=== PATIENT | male | born 1960 | race Caucasian/White ===

== ENCOUNTER 2020-05-21 09:31 | Outpatient (CLI) | payer BC, SELFPAY ==
--- NOTE | 2020-05-21 09:53 | XR_ITS ---
WS: [id number] PROCEDURE: XR chest 2V* [id number] CLINICAL INFORMATION: shortness of breath COMPARISON: FINDINGS: Heart: Normal cardiac silhouette. Lungs: Lungs are clear. No consolidation or pleural fluid. Moderate chronic emphysematous changes. Bones: Normal visualized bony structures. XR/XR chest 2V* [id number] IMPRESSION: Moderate chronic emphysematous changes. No acute pulmonary infiltrates.
== END 2020-05-21 09:32 | disposition home or self-care (01) ==
LOC: RADWPI 09:35
PROVIDERS: Family Provider Family Medicine; PCP Family Medicine; Visit Provider Family Medicine Adult Medicine
DX: R06.02 Shortness of breath (principal)
CPT/HCPCS: 71046; 80053; 80061; 83036; 83880; 84443; 84484; 85025; G0103

== ENCOUNTER → 2020-12-24 09:15 | Outpatient (BNVA) | payer OTHER, SELFPAY | PROVIDERS: Family Provider Family Medicine; PCP Family Medicine; Visit Provider Psychiatry & Neurology Psychiatry | DX: F39 Unspecified mood [affective] disorder (principal) | CPT/HCPCS: 90792 ==

== ENCOUNTER → 2021-01-08 12:23 | Outpatient (BNVA) | payer OTHER, SELFPAY | PROVIDERS: Family Provider Family Medicine; PCP Family Medicine Adult Medicine; Visit Provider Psychiatry & Neurology Psychiatry | DX: F39 Unspecified mood [affective] disorder (principal) | CPT/HCPCS: 99214 ==

== ENCOUNTER → 2021-01-11 10:33 | Outpatient (BNVA) | payer OTHER, SELFPAY | PROVIDERS: Family Provider Family Medicine; PCP Family Medicine Adult Medicine; Visit Provider Social Worker | DX: F39 Unspecified mood [affective] disorder (principal) | CPT/HCPCS: 90834 ==

== ENCOUNTER → 2021-02-02 13:04 | Outpatient (BNVA) | payer OTHER, SELFPAY | PROVIDERS: Family Provider Family Medicine; PCP Family Medicine Adult Medicine; Visit Provider Psychiatry & Neurology Psychiatry | DX: F39 Unspecified mood [affective] disorder (principal) | CPT/HCPCS: 99214 ==

== ENCOUNTER → 2021-05-25 10:31 | Outpatient (BNVA) | payer OTHER, SELFPAY | PROVIDERS: Family Provider Family Medicine; PCP Family Medicine Adult Medicine; Visit Provider Family Medicine Adult Medicine | DX: M54.16 Radiculopathy, lumbar region (principal); N18.30 Chronic kidney disease, stage 3 unspecified; E78.5 Hyperlipidemia, unspecified; E03.9 Hypothyroidism, unspecified; R94.6 Abnormal results of thyroid function studies; E66.9 Obesity, unspecified | CPT/HCPCS: 80053; 80061; 84443; 85651 ==

== ENCOUNTER 2021-05-26 13:23 | Outpatient (CLI) | payer OTHER, SELFPAY ==
--- NOTE | 2021-05-26 13:00 | XR_ITS ---
WS: [id number] LUMBAR SPINE: 3 VIEWS TECHNIQUE: AP, lateral and L5-S1 spot. HISTORY: LBP intermittent COMPARISON: None available. Long curvature lumbar spine and mild straightening. 4 mm anterolisthesis of L5. Disc spaces are mildl y narrowed with endplate osteophytes throughout the lumbar spine. Moderate facet joint arthritis L4-5 and L5-S1. Pedicles are all identified. No fracture. SI joints are symmetric bilaterally. No soft tissue abnormalities. XR/XR lumbar spine 2-3V* [id number] IMPRESSION: Moderate spondylitic changes. No fracture. Facet joint arthritis most significant L4-5 and L5-S1.
== END 2021-05-26 13:24 | disposition home or self-care (01) ==
PROVIDERS: PCP Family Medicine Adult Medicine; Visit Provider Family Medicine Adult Medicine
DX: M54.5 Low back pain (principal); M47.816 Spondylosis without myelopathy or radiculopathy, lumbar region; M47.817 Spondylosis without myelopathy or radiculopathy, lumbosacral region
CPT/HCPCS: 72100

== ENCOUNTER 2021-07-13 14:47 | Outpatient (CLI) | payer OTHER, SELFPAY ==
--- NOTE | 2021-07-13 15:15 | MR_ITS ---
WS: [id number] MRI LUMBAR SPINE NONCONTRAST HISTORY: M54.50 - Low back pain, unspecified COMPARISON: None available. TECHNIQUE: Sagittal and axial multisequence imaging is submitted. 3 mm retrolisthesis of L4. Moderate disc space narrowing and desiccation at L4-5 and L5-S1. Small elise unt of marrow edema along the endplates of L4 and L5. No fractures. Disc spaces and vertebral body heights are well-preserved. Conus terminates normally at L1. L1-L2: Mild disc bulging. No stenosis. L2-L3: Mild annular disc bulge with a central annular fissure. Very slight ligamentum flavum arthriti s. There is mild encroachment into the lateral recesses with only mild narrowing and stenosis. L3-L4: Diffuse annular disc bulge with central annular fissures. Mild osteophytic ridging mild ligame ntum flavum and facet arthritis. Narrowing of the lateral recesses with encroachment upon the moira ing L4 nerve roots bilaterally. Mild bilateral foraminal narrowing. L4-L5: Diffuse osteophytic ridging and annular disc bulging. There is a shallow central disc protrusi on with mild ligamentum flavum hypertrophy and facet arthritis. Mild bilateral subarticular recess st enosis. The central disc protrusion is slightly contacting the traversing L5 nerve roots. L5-S1: Mild annular disc bulging and osteophytic ridging. Mild ligamentum flavum hypertrophy and face t arthritis. Mild LEFT subarticular foraminal stenosis. Visualized retroperitoneum is normal. MR/MR lumbar spine wo con* [id number] IMPRESSION: 1. Moderate degenerative disc disease at L4-5 and L5-S1. 2. Moderate disc osteophyte encroachment upon the traversing L4 nerve roots in the lateral recesses with mild bilateral foraminal stenosis also. 3. Central disc protrusion at L4-5 slightly contacting the traversing L5 nerve roots with mild bilateral subarticular recess stenosis. 4. Mild LEFT subarticular and foraminal stenosis at L5-S1.
== END 2021-07-13 14:48 | disposition home or self-care (01) ==
LOC: RADSHAW 14:49
PROVIDERS: PCP Family Medicine Adult Medicine; Visit Provider Orthopaedic Surgery
DX: M51.16 Intervertebral disc disorders with radiculopathy, lumbar region (principal); M51.37 Other intervertebral disc degeneration, lumbosacral region; M25.78 Osteophyte, vertebrae; M51.26 Other intervertebral disc displacement, lumbar region; M48.07 Spinal stenosis, lumbosacral region
CPT/HCPCS: 72148

== ENCOUNTER → 2021-08-02 11:12 | Outpatient (BNVA) | payer OTHER, SELFPAY | PROVIDERS: PCP Family Medicine Adult Medicine; Visit Provider Surgery | DX: Z20.822 Contact with and (suspected) exposure to COVID-19 (principal); Z11.52 Encounter for screening for COVID-19 | CPT/HCPCS: 87635 ==

== ENCOUNTER 2021-08-05 09:48 | Day surgery (SDC) | payer OTHER, SELFPAY ==
--- NOTE | 2021-08-05 10:32 | ANES.PREANE2 ---
Pre-Anesthetic Assessment Pre-Anesthetic Assessment: Height/Weight: Height 1.83 m Preop Diagnosis: diagnostic Proposed Procedure: Operation Date: 08/05/21 11:30 Proposed Procedures p Colonoscopy 52393 K52.9(Not Applicable) - Greg Perry MD Was Beta Edin taken within 24 hours: N/A Was Clonidine taken within 24 hours: N/A Social: Social History: No alcohol and No tobacco Exam: Pre-Anes Outpt Exam: alert, oriented x 3 and regular rate & rhythm Airway: Submandibular: WNL Cervical ROM: WNL MP: 2 Dentition: Chipped Pulmonary: Pulmonary: COPD and ARROYO CV/HEM: CV/HEM: Angina (Stable) : : Chronic renal Insufficiency Metabolic: Metabolic: Hyperlipidemia, Morbid obesity and Thyroid Musc/skel: Musc/skel: Lower Back Pain Anesthetic Plan: ASA status: 3 Anesthesia: MAC Risk of > 500 ml blood loss (7ml/kg in children): No PFSH Anesthesia PFSH: Medical History 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 Cellulitis Chronic osteoarthritis CKD (chronic kidney disease) stage 3, GFR 30-59 ml/min COPD (chronic obstructive pulmonary disease) with emphysema Hyperlipemia Hypothyroidism determined by thyroid function test Impacted ear wax Lacrimal duct stenosis Mood disorder Psoriasis annularis Radiculopathy, lumbar region Surgical History H/O facial fracture repair Status post colonoscopy Social History Smoking and tobacco status: never smoked Second hand smoke exposure: Yes Alcohol intake: never Adopted: No Caregiver/support person: No Lives independently: Yes Household members: spouse Current occupational status: employed Current gender identity: Male Special randall needs: No Data Anesthesia Cardiac Studies: No Data to Display
[2021-08-05 11:30] VITALS: BP 153/98; PULSE 61; RESP 18; TEMP 36.3; O2SAT 96
[2021-08-05 11:34] VITALS: BMI 31.8
--- NOTE | 2021-08-05 11:51 | W.PM.OPSFHP ---
Same Day Surgery H&P Indication for Procedure/HPI DATE OF PROCEDURE: August 05, 2021 CHIEF COMPLAINT/INDICATIONFOR SURGICAL PROCEDURE: diarrhea/colonoscopy PREOP DIAGNOSIS: diagnostic PLANNED PROCEDRUE: Operation Date: 08/05/21 11:30 Proposed Procedures p Colonoscopy 42256 K52.9(Not Applicable) - Greg Perry MD Medications/Allergies* Home Medications Medication Instructions Recorded Confirmed Type levothyroxine 112 mcg PO DAILY 08/05/21 08/05/21 History Allergies/Adverse Reactions Allergy/AdvReac Type Severity Reaction Status Date / Time No Known Allergies Allergy Verified 07/27/21 15:15 Pertinent History/Comorbid Conditions* Medical History (Updated 07/27/21 @ 15:53 by Duc Taylor DO) 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 Cellulitis Chronic osteoarthritis CKD (chronic kidney disease) stage 3, GFR 30-59 ml/min COPD (chronic obstructive pulmonary disease) with emphysema Hyperlipemia Hypothyroidism determined by thyroid function test Impacted ear wax Lacrimal duct stenosis Mood disorder Psoriasis annularis Radiculopathy, lumbar region Surgical History (Updated 07/02/21 @ 13:05 by Greg Perry MD) H/O facial fracture repair Status post colonoscopy Social History Smoking and tobacco status: never smoked Second hand smoke exposure: Yes Alcohol intake: never Adopted: No Caregiver/support person: No Lives independently: Yes Household members: spouse Current occupational status: employed Current gender identity: Male Special randall needs: No Pertinent Exam Findings alert, oriented x 3 and regular rate & rhythm Recommendations Surgery/Procedure today Coding Level of Care Code Acute 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
[2021-08-05] MEDS: sodium chloride 0.9% 1,000 ML 30 ML IV (11:54)
[2021-08-05 12:27] VITALS: BP 111/71; PULSE 71; RESP 16; TEMP 36.7; O2SAT 98
--- NOTE | 2021-08-05 13:35 | ANE.PACU2 ---
Inpatient post-anesthesia follow up: Airway intact: Yes Vital signs: Temperature 98.1 F Pulse Rate 71 Respiratory Rate 16 Blood Pressure 111/71 Pulse Oximetry 98 Oxygen Delivery Me thod Room Air Oxygen Flow Rate Fraction of Inspir ed Oxygen Hydration adequate: Yes Nausea and vomiting: No Pain level: 1 Mental status: Baseline
== END 2021-08-05 12:59 | disposition home or self-care (01) ==
PROVIDERS: PCP Family Medicine Adult Medicine; Visit Provider Surgery
PROC: 0DJD8ZZ Inspection of Lower Intestinal Tract, Via Natural or Artificial Opening Endoscopic (ICD-10-PCS; CPT 45378; principal; 2021-08-05 11:30)
DX: Z12.11 Encounter for screening for malignant neoplasm of colon (principal); D12.4 Benign neoplasm of descending colon; K57.30 Diverticulosis of large intestine without perforation or abscess without bleeding; K64.8 Other hemorrhoids; R19.7 Diarrhea, unspecified; E03.9 Hypothyroidism, unspecified; N18.30 Chronic kidney disease, stage 3 unspecified; M54.50 Low back pain, unspecified; Z77.22 Contact with and (suspected) exposure to environmental tobacco smoke (acute) (chronic)
CPT/HCPCS: 45380; 82274; 83630; 87493; 87506; 88305; J2704; J7030

== ENCOUNTER → 2021-08-16 08:57 | Outpatient (BNVA) | payer OTHER, SELFPAY | PROVIDERS: PCP Family Medicine Adult Medicine; Referring Provider Orthopaedic Surgery; Visit Provider Anesthesiology Pain Medicine | DX: M48.062 Spinal stenosis, lumbar region with neurogenic claudication (principal); M54.16 Radiculopathy, lumbar region; M47.816 Spondylosis without myelopathy or radiculopathy, lumbar region; Z79.899 Other long term (current) drug therapy; R10.30 Lower abdominal pain, unspecified | CPT/HCPCS: 99204 ==

== ENCOUNTER → 2022-05-31 09:18 | Outpatient (BNVA) | payer SELFPAY | PROVIDERS: PCP Family Medicine Adult Medicine; Visit Provider Dermatology | DX: Z01.89 Encounter for other specified special examinations (principal); E78.5 Hyperlipidemia, unspecified; E03.9 Hypothyroidism, unspecified; R94.6 Abnormal results of thyroid function studies; N18.30 Chronic kidney disease, stage 3 unspecified ==

== ENCOUNTER → 2022-11-22 08:07 | Outpatient (BNVA) | payer OTHER, SELFPAY | PROVIDERS: PCP Family Medicine Adult Medicine; Visit Provider Family Medicine Adult Medicine | DX: E78.5 Hyperlipidemia, unspecified (principal); E03.9 Hypothyroidism, unspecified; R94.6 Abnormal results of thyroid function studies; K52.9 Noninfective gastroenteritis and colitis, unspecified; J43.9 Emphysema, unspecified; R63.5 Abnormal weight gain; N18.30 Chronic kidney disease, stage 3 unspecified; L40.8 Other psoriasis; H04.559 Acquired stenosis of unspecified nasolacrimal duct; E78.2 Mixed hyperlipidemia; I20.0 Unstable angina; Z98.890 Other specified postprocedural states; Z87.81 Personal history of (healed) traumatic fracture; E66.9 Obesity, unspecified | CPT/HCPCS: 80053; 80061; 83036; 84443; 85025 ==

== ENCOUNTER 2023-01-26 06:06 | Outpatient (CLI) | payer OTHER, SELFPAY ==
--- NOTE | 2023-01-26 06:30 | USCV_ITS ---
Xavi Eckert Age: 62 Gender: M : 1960 Exam Date: 01/26/2023 06:22 Ordering Phys: Duglas Alexis MD ([email or web address]) Technologist: MARISEL [place]am [place] [facility] [place] Indication: SHORTNESS OF BREATH, CHEST PAIN BP: 140 / 90 HR: 48 Rhythm: Sinus Technical Quality: Adequate MEASUREMENTS (Male / Female) Normal Values 2D ECHO LVOT Diameter 2.0 cm LV Ejection Fraction MOD 2C 77.1 % LV Ejection Fraction 2C AL 77.8 % LA Diameter 2.7 cm LA Width 3.1 cm LA Height 4.7 cm RA Width 3.1 cm RA Height 3.6 cm Aorta at Sinotubular Diameter 2.6 cm IVC Diameter 1.8 cm M-MODE Aortic Annulus Diameter 3.3 cm LA Ao Ratio MM 0.7 MV E Point Septal Separation 0.5 cm DOPPLER AV Peak Velocity 143.0 cm/s LVOT Peak Velocity 122.0 cm/s AV Area Cont Eq vti 2.4 cm squared AV Area Cont Eq pk 2.8 cm squared MV Peak Velocity 78.0 cm/s MV Area PHT 3.0 cm squared Mitral E to A Ratio 1.2 MV E' Velocity 49.5 cm/s Mitral E to MV E' Ratio 8.0 Mitral E to LV E' Lateral Ratio 6.7 Mitral E to LV E' Septal Ratio 9.9 TR Peak Velocity 147.6 cm/s TR Peak Gradient 8.7 mmHg TR Mean Velocity 120.9 cm/s TR Mean Gradient 6.0 mmHg TR Velocity Time Integral 37.8 cm TV Peak E Velocity 40.0 cm/s Right Atrial Pressure 3.0 mmHg Pulmonary Artery Systolic Pressu 11.7 mmHg PV Peak Velocity 131.0 cm/s RV Acceleration Time 0.1 s RV Ejection Time 0.4 s RV AcT/ET 0.3 FINDINGS Left Ventricle Normal left ventricular size, systolic function and wall thickness, with no regional wall motion abnormalities. Grade I/IV diastolic dysfunction (abnormal relaxation filling pattern), normal to mildly elevated filling pressures. Left ventricular ejection fraction is estimated at 60 %. Right Ventricle Normal right ventricular size and systolic function. Normal right ventricular systolic pressure. Right Atrium The right atrium is normal in size. Left Atrium The left atrium is normal in size. Mitral Valve Structurally normal mitral valve without significant stenosis or prolapse. There is no mitral regurgitation. Aortic Valve Structurally normal aortic valve without significant sclerosis or stenosis. There is no aortic regurgitation. Tricuspid Valve Structurally normal tricuspid valve without significant stenosis or regurgitation. Pulmonary artery systolic pressure is normal. Pulmonic Valve Pulmonic valve not well visualized. Pericardium Normal pericardium without effusion. Aorta Normal ascending aorta dimension. IVC The inferior vena cava appears normal. CONCLUSIONS Normal left ventricular size, systolic function and wall thickness, with no regional wall motion abnormalities. Grade I/IV diastolic dysfunction (abnormal relaxation filling pattern), normal to mildly elevated filling pressures. Left ventricular ejection fraction is estimated at 60 %. There are no prior echocardiogram studies to compare. Dr. Duglas Alexis MD (Electronically Signed) Final Date: 26 Jan 2023 08:04 S
== END 2023-01-26 06:07 | disposition home or self-care (01) ==
LOC: RAD 06:10
PROVIDERS: PCP Family Medicine Adult Medicine; Visit Provider Internal Medicine Cardiovascular Disease
DX: R06.02 Shortness of breath (principal); R07.9 Chest pain, unspecified; I51.89 Other ill-defined heart diseases
CPT/HCPCS: 93306

== ENCOUNTER → 2023-04-13 15:03 | Outpatient (BNVA) | payer OTHER, SELFPAY | PROVIDERS: PCP Family Medicine Adult Medicine; Visit Provider Family Medicine Adult Medicine | DX: N18.30 Chronic kidney disease, stage 3 unspecified (principal); E03.9 Hypothyroidism, unspecified; R94.6 Abnormal results of thyroid function studies; R73.03 Prediabetes; R07.89 Other chest pain; K21.9 Gastro-esophageal reflux disease without esophagitis | CPT/HCPCS: 80053; 83036; 84443 ==

== ENCOUNTER 2023-05-30 07:08 | Outpatient (CLI) | payer OTHER, SELFPAY ==
--- NOTE | 2023-05-30 | ECG_ITS ---
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 Interpretive Statements NAME OF STUDY: LEXISCAN SESTAMIBI STRESS TEST INDICATION: Chest Pain PROCEDURE: At the baseline, the blood pressure was 132 over 90 mmHg, oxygen saturation 94% with a heart rate of 54 bpm. The electrocardiogram showed sinus bradycardia, normal axis with normal ST-T's. The Lexiscan was infused over a period of 20 seconds. A total of 0.4 milligrams of Lexiscan was infused. The stress phase was continued for a total of 5 minutes. Heart rate at the end of the stress phase was 78 bpm, oxygen saturation 95% with a blood pressure 135/99 mmHg. The EKG at the peak infusion revealed sinus rhythm with no significant ST-T wave changes. Sestamibi was injected 20 seconds after the Lexiscan infusion. Blood pressure at the end of the recovery phase was 144/95 mmHg, oxygen saturation 95% with a heart rate of 78 beats per minute. CONCLUSION: 1. Normal EKG response to LexiScan infusion. 2. No LexiScan induced chest pain or cardiac arrhythmia. 3. Normal blood pressure and heart rate response. 4. Sestamibi/sestamibi perfusion scan pending; see separate report. Electronically Signed On 05-30-2023 12:59:02 CDT by Willa Marroquin M.D. [id number]
--- NOTE | 2023-05-30 07:17 | NMCV_ITS ---
NM lacey perf SPECT r/s* [id number] Xavi Eckert Age: 62 Gender: M : 1960 Exam Date: 05/30/2023 07:17 Ordering Phys: Duglas Alexis MD ([email or web address]) Technologist: IVAN Streeter Exam Location: [facility] Indications: SHORTNESS OF BREATH STRESS TEST [facility] IMAGE PROTOCOL Rest/Stress 1 Lexiscan Day Radiopharmaceutical Dose (mCi) Administration Site Administered by Rest: Tc-99m 11.0 IV IVAN Raphael Sestamibi Stress:Tc-99m 32.7 IV IVAN Raphael Sestamibi Rest: 30-May-2023 60 Discovery 630 Stress: 30-May-2023 30 Discovery 630 0.4mg Lexiscan. Images obtained in supine and prone position. SPECT RESULTS Technical Quality: Excellent Raw Data Analysis: Normal Image Corrections: No attenuation or motion correction applied Summed Stress Score: 8 Summed Rest Score: 0 Summed Difference Score: 8 PERFUSION FINDINGS Medium sized perfusion abnormality of mild to moderate severity of mid to apical anterior, apical inferior, apical lateral and apical jeter on stress images. FUNCTIONAL RESULTS (calculated via Gated SPECT) Stress Image LV EF (%): 65 Stress EDV (mL):119 TID: 1.17 Stress ESV (mL):42 FUNCTIONAL FINDINGS: The left ventricle is normal in size. Transient Ischemia Dilatation of 1.17. The left ventricular ejection fraction is normal with a value of 65%. There is mild hypokinesis of mid to apical anterior and apical jeter. Normal end-diastolic and end-systolic volumes. IMPRESSIONS 1. Medium sized reversible perfusion abnormality of mild to moderate severity of mid to apical anterior, apical inferior, apical lateral and apical jeter. 2. This likely represents small area of ischemia in left anterior descending artery territory. 3. The left ventricular ejection fraction is normal with a value of 65%. 4. There is mild hypokinesis of mid to apical anterior and apical jeter. 5. No EKG changes with Lexiscan infusion. Refer to separate report for details. Willa Marroquin MD (Electronically Signed) Final Date: 30 May 2023 12:56 S
[2023-05-30] MEDS: regadenoson 0.4 Mg/5 ml Syringe IVP (08:50)
[2023-05-30 09:08] VITALS: BP 144/95; PULSE 79
== END 2023-05-30 07:09 | disposition home or self-care (01) ==
PROVIDERS: PCP Family Medicine Adult Medicine; Visit Provider Internal Medicine Cardiovascular Disease
DX: R06.02 Shortness of breath (principal); R07.9 Chest pain, unspecified
CPT/HCPCS: 36415; 78452; 93017; 96374; A9500; J2785

== ENCOUNTER 2023-07-10 13:32 | Outpatient (CLI) | payer OTHER, SELFPAY ==
--- NOTE | 2023-07-10 13:39 | USCV_ITS ---
Xavi Eckert Age: 62 Gender: M : 1960 Exam Date: 07/10/2023 13:53 Ordering Phys: Delisa Amado Technologist: ZAHIRA [place] [facility] [place] Indication: RT LE Leg Pain and Redness HISTORY: Lower extremity swelling. Lower extremity pain. PROCEDURES: Venous duplex imaging was performed in only the right lower extremity. The following venous structures were evaluated: common femoral vein, profunda vein, proximal portion of the greater saphenous vein, superficial femoral vein, and the popliteal vein. In addition, the posterior tibial and peroneal trunk were evaluated. Serial compression, augmentation maneuvers, and spectral Doppler flow evaluation were performed. FINDINGS: Normal 2-D Doppler and augmentation and compressibility throughout the lower extremity venous structures. Additional imaging through the proximal calf veins also reveals no thrombus. Limited evaluation of the greater saphenous vein is patent with no thrombus. CONCLUSIONS No DVT right lower extremity. Dr. Diamond Lock DO (Electronically Signed) Final Date: 11 July 2023 08:36 S
== END 2023-07-10 13:33 | disposition home or self-care (01) ==
LOC: RAD 13:33
PROVIDERS: PCP Family Medicine Adult Medicine; Visit Provider Nurse Practitioner Family
DX: M79.604 Pain in right leg (principal)
CPT/HCPCS: 93971